=== PATIENT | female | born 1950 | race Caucasian/White ===

== ENCOUNTER 2016-06-21 06:06 | Observation (INO) ==
[2016-06-21] MEDS ORDERED: CeFAZolin Pre 2,000 MG/100 ML 2,000 MG/100 ML BAG IVPB ONE (06:40)
[2016-06-21] MEDS ORDERED: Lidocaine 1% 20 ML MDV ID ONE (06:42)
[2016-06-21] MEDS ORDERED: Ringers Solution, Lactated 1,000 ML IVC SCH ×2 (06:45→13:55)
[2016-06-21] MEDS ORDERED: Lidocaine -MPF 4% 5 ML AMPUL ONE (07:07)
[2016-06-21] MEDS ORDERED: *HR* Midazolam HCl 2 MG/2 ML VIAL ONE (07:09)
[2016-06-21] MEDS ORDERED: *HR* FentaNYL (PF) 100 MCG/2 ML VIAL ONE (07:10)
[2016-06-21] MEDS ORDERED: *HR* Propofol 200 MG/20 ML VIAL IVP ONE (07:10)
[2016-06-21] MEDS ORDERED: *HR* Succinylcholine 200 MG/10 ML VIAL IVP ONE (07:11)
[2016-06-21] MEDS ORDERED: Lidocaine -MPF 2% 2 ML VIAL ONE (07:11)
[2016-06-21] MEDS ORDERED: *HR* Rocuronium Bromide 50 MG/5 ML VIAL ONE ×2 (07:13→14:10)
[2016-06-21] MEDS ORDERED: *HR* Phenylephrine 10 MG/ML VIAL ONE (07:17)
[2016-06-21] MEDS ORDERED: *HR* Remifentanil 1 MG VIAL IVP ONE ×2 (07:20)
--- NOTE | 2016-06-21 07:30 | Anesthesia Evaluation PreOp ---
Date of Encounter: 06/21/16 Time of Encounter: 07:28 - Past History Planned Operation: PLIF L3-L5 Cardiac History: Hyperlipidemia Pulmonary History: Former smoker (89), Snore PITCH FILLER History: Denies Any Significant HX Other Medical History: Denies Any Significant HX Anesthesia History: No Prior Anesthetic Complications, Past Anesthesia ( hysterect, shoulder, l knee, appy, r ctr, vaginal) Alcohol Use: none Drug use: none Medications and Allergies Allergies acetaminophen [From Vicodin] Allergy (Unverified 06/16/16 11:16) Itching hydrocodone [From Vicodin] Allergy (Unverified 06/16/16 11:16) Itching nabumetone [From Relafen] Adverse Reaction (Unverified 06/16/16 11:16) Hives - Meds/Allergy Pre-op Review Medications Reviewed: Yes Allergies Reviewed: Yes Beta Blockers on Current Med List: No Anesthesia Results - Labs Laboratory Tests 06/16/16 06/16/16 11:25 11:25 Hgb 14.0 Hct 43.2 Plt Count 303 PT 11.0 APTT 31.6 06/23/15 na 139, k 4.1, creat 0.85 - Imaging EKG: pending Anesthesia Exam O2 Sat Height 1.65 m Height 1.65 m Height 1.65 m Weight 86.636 kg Weight 86.636 kg Weight 86.636 kg O2 Sat by Pulse Oximetry 95 O2 Sat by Pulse Oximetry 95 Vital Signs Temp Pulse Resp BP Pulse Ox 98.8 F 100 18 150/81 95 06/21/16 06:32 06/21/16 06:32 06/21/16 06:32 06/21/16 06:32 06/21/16 06:32 Height: 1.65 Weight: 86 NPO (# of Hours): >8 - HEENT Pupil (Motor): Pupils equal, EOMI Mallampati: III Teeth: Edentulous Oral Opening: Greater than 3 - PITCH FILLER LOC: Oriented PITCH FILLER Motor: Normal RUE, Normal LUE, Normal RLE, Normal LLE, Normal Face PITCH FILLER Sensory: Normal: RUE, LUE, RLE, LLE, Face - Cardiac Rhythm: Regular Murmur: None - Pulmonary Breath Sounds: bilateral Clear Respiratory Effort: Symmetrical Anesthesia Assess/Plan ASA Score: 2 Modified [place] Scale for Level of Consciousness: Cooperative, oriented, and tranquil Anesthetic Plan: General Monitoring Plan: Standard Monitors Recovery Plan: PACU
--- NOTE | 2016-06-21 07:34 | History & Physical Report ---
Date of Encounter: 06/21/16 Time of Encounter: 07:33 24 Hour HP Update - Instructions Instructions: If the History and Physical is less than 30 days old and was completed prior to A.M. admission and or procedure and has NOT been updated on calendar day of procedure please complete this update prior to performing procedure. - Update Patient reports changes in Medical Condition: No Changes in assessment/condition: No Changes in Medication: No Preop tests/diagnostics Reviewed: Yes Pre-Op MRSA Screen: Negative Surgery Remains Indicated: Yes Consent for Planned Operative Procedure(s) Verified: Yes - Pre-Operative Checklist Preoperative Checklist Indicated: No Prophylactic Antibiotic Ordered: Yes Home Medications Include Beta Dacia: No Beta Dacia Taken Today (Day of Surgery): No Beta Dacia Taken Yesterday (Day Prior to Surgery): No Is VTE Prophylaxis Indicated?: Yes
[2016-06-21] MEDS ORDERED: EPHEDrine 50 MG/ML VIAL ONE (10:28)
[2016-06-21] MEDS ORDERED: *HR* HYDROmorphone (PF) 1 MG/ML SYRINGE IVP PRN (10:59)
--- NOTE | 2016-06-21 11:04 | Anesthesia Progress Note ---
Date of Encounter: 06/21/16 Time of Encounter: 08:10 Anesthesia Note - Note Note: 06/21/16 11:01 patient in holding room, monitors on. 3 Vital Signs Time 0810 0825 0840 0855 0910 0925 BP 123/74 131/70 123/67 118/72 121/70 122/73 Pulse 91 100 97 97 95 95 Resp 14 16 16 16 16 16 O2 Sat 97 97 97 98 98 98 0935 or 7 ready, patient transported to or 7
[2016-06-21] MEDS ORDERED: Neostigmine Methylsulfate 3 MG/3 ML SYRINGE ONE (11:30)
[2016-06-21] MEDS ORDERED: *HR* HYDROmorphone 2 MG/ML SYRINGE ONE (12:45)
--- NOTE | 2016-06-21 13:00 | Orthopedic Operative Note ---
Date of procedure: 06/21/16 Pre-op diagnosis: vertebral fracture, lumbar stenosis, lumbar radiculopathy Post-op diagnosis: same Operation/Findings: Instrumented posterior spinal fusion L3-L5:The patient successfully underwent general endotracheal anesthesia. The patient was given antibiotics prior to the start of the procedure. Compression boots and stockings were used for deep vein thrombosis prophylaxis. A Pires catheter was placed. Leads for neuro monitoring were placed on the upper and lower extremities. This included the cranium. The neuro monitoring personnel confirmed there were satisfactory readings prior to the start of the procedure. The patient was turned prone on the El table. The back was prepped and draped in the usual sterile fashion. An incision was was marked and centered over the involved L3-L5 levels in the mid line. The incision was deepened through the lumbar fascia. Bovie cautery and Gao elevators were used to reflect the paraspinal musculature at the lateral extent of the transverse processes of the involved L3 , L4, and L5 levels. Rebeca clamps were placed over the L4 and L5 spinous processes. An intraoperative lateral fluorograph was obtained. A conversation was held between the surgeon and radiologist and both confirmed we had the correct operative levels. We then placed pedicle screws in standard fashion with the aid of fluoroscopy and anatomic landmarks. Briefly a starter awl was used. A gearshift was subsequently used to enter the pilot captain hole via a transpedicular route into the vertebral body. The pilot captain hole was tapped with an undersized instrument, and subsequently four 6.5 x 40 mm pedicle screws were placed bilaterally at the indicated L3 and L5 levels. The screws were tested with the aid of the neurologic monitoring staff via pedicle screw stimulation. All reading suggested there was no significant cortical wall breech. The screws were also evaluated fluoro- graphically and appeared to be in satisfactory position. We then turned our attention to the decompression portion of the procedure. We removed the supraspinous and interspinous ligaments and subsequently the insertion of the ligamentum flavum on the undersurface of the proximal L4 lamina was dislodged with a curette. We then removed the ligamentum flavum as well as undercut the facets at this L4-5 level to decompress the lateral recesses. Synovial cyst material and possible fracture fragmrnts were also removed. We also performed a L4 laminectomy. We proceeded proximally to the L3-4 level where again the lateral recess was decompressed by undercutting the facets at this level. We removed ligamentum flavum performed a partial L3 laminectomy as well. After the decompression the foramen and traversing roots at this level were found to be free and patent. We obtained some bone from the right posterior superior iliac spine through a separate incision and combined with this with the bone which we had saved from the laminectomy portion of the procedure. We then copiously irrigated the wound. We then decorticated the transverse processes of L3, L4 , and L5 as well as the L3-4 and L4-5 facet joints of the involved levels to aid in the posterolateral fusion. We placed autograft bone in the lateral gutters over these regions. We then placed rods within the screw heads of the involved L3- L5 levels. We then closed the wound in layers with 1 Vicryl for the fascia, 2 -0 Vicryl. Subcutaneous tissue, and Dermabond was used for skin closure. Sterile dressings were placed over the wound. The patient was turned supine on a hospital bed and extubated. All sponge instruments and needle counts were correct at the end of the procedure. The patient tolerated the procedure well Anesthesia: GETA Surgeon: Han Renee Jr Estimated blood loss (cc): 200 Condition: stable Disposition: PACU
--- NOTE | 2016-06-21 13:44 | Anesthesia Evaluation Post Op ---
Date of Encounter: 06/21/16 Time of Encounter: 13:43 - Vital Signs Vital Signs: Vital Signs/O2 Sat/Glucose, Most Current Temp Pulse Resp BP Pulse Ox 06/21/16 13:36 97.8 F 73 16 154/78 99 06/21/16 13:26 74 18 158/74 100 06/21/16 13:16 80 14 152/92 99 06/21/16 13:06 98.7 F 86 16 156/83 100 - Lungs Lungs: Clear Ascult./Percussion - Airway Airway: Non-obstructed - Cardiovascular Regular Rate - Mental Status Mental Status: Alert & Oriented, Answers Appropriately - Pain Pain Scale: 2 - Nausea Vomiting Nausea Vomiting: Not Present - Hydration Hydration: Ice chips - Discharge PostOp Status: Transfer Patient to floor
[2016-06-21] MEDS ORDERED: *HR* Morphine 2 MG/ML SYRINGE IVP PRN (13:55)
[2016-06-21] MEDS ORDERED: Sennosides 8.6 MG TABLET PO PRN (13:55)
[2016-06-21] MEDS ORDERED: Naloxone 0.4 MG/ML INJ IVP PRN (13:55)
[2016-06-21] MEDS ORDERED: Ibuprofen 400 MG TABLET PO PRN (13:55)
[2016-06-21] MEDS ORDERED: Ondansetron 4 MG/2 ML VIAL IVP PRN (13:55)
[2016-06-21] MEDS: *HR* OxyCODONE Immed Rel 5 MG TABLET PO PRN ×2 (14:27→21:10)
[2016-06-21] MEDS ORDERED: Dexamethasone 4 MG/ML VIAL ONE (15:23)
[2016-06-21] MEDS ORDERED: Ondansetron 4 MG/2 ML VIAL ONE (15:23)
[2016-06-21] MEDS: ceFAZolin 2,000 MG in D5% in Water 100 ML IVPB SCH (15:44)
--- NOTE | 2016-06-21 17:46 | Electrocardiograph Report ---
[facility] Test Date: 2016-06-21 Pat Name: Kimberley Alcantar Department: 106 Room: [facility] Gender: F Engineer Of System Development: Luci : 1950 Requested By: Malachi Vergara Order Number: [id number] Reading MD: Jason Turcios DO Measurements Intervals [place] Rate: 97 P: 4 DC: 159 QRS: 6 QRSD: 85 T: 22 QT: 337 QTc: 391 Interpretive Statements Sinus rhythm Electronically Signed On 06-21-16 17:45:06 EST by Jason Turcios DO
[2016-06-21] MEDS: *HR* Morphine 2 MG/ML SYRINGE IVP PRN (19:01)
[2016-06-22] MEDS: ceFAZolin 2,000 MG in D5% in Water 100 ML IVPB SCH (00:10)
[2016-06-22] MEDS: *HR* Morphine 2 MG/ML SYRINGE IVP PRN ×4 (00:10→20:00)
[2016-06-22] MEDS: *HR* OxyCODONE Immed Rel 5 MG TABLET PO PRN ×4 (03:14→16:33)
[2016-06-22 05:59] LABS: Basophils % 0.2 %; Hematocrit 35.5 % (35.3-44.9); Immature Granulocytes % 0.4 % (0-4); Lymphocytes # 2.2 K/mcL (0.6-4.6); Lymphocytes % 12.3 %; Mean Corpuscular HGB Conc 33.8 g/dL (31.6-35.5); Mean Corpuscular Hemoglobin 29.9 pg (28.0-33.3); Mean Corpuscular Volume 88.5 fL (83.0-100.0); Mean Platelet Volume 10.2 fL (9.4-12.4); Monocytes # 2.3 K/mcL (0.0-1.3); Monocytes % 12.6 %; Platelet Count 279 K/mcL (140-400); Red Blood Count 4.01 M/mcL (3.82-4.97); Red Cell Distribution Width 13.6 % (11.5-14.5); Segmented Neutrophils % 74.5 %
[2016-06-22 06:00] LABS: Neutrophils # 13.6 K/mcL (1.6-8.9)
[2016-06-22 06:15] LABS: BUN/Creatinine Ratio 17 (6-26); Blood Urea Nitrogen 13 mg/dL (7-20); Carbon Dioxide 23 mEq/L (19-29); Chloride 104 mEq/L (98-109); Glucose 122 mg/dL (70-99); Osmolality,Calculated 285 (280-300); Potassium 4.2 mEq/L (3.5-4.5); Sodium 137 mEq/L (136-145); eGFR For African Americans > 60 (> 60); eGFR For Non-African Americans > 60 (> 60)
[2016-06-22] MEDS: Multivit/Ca/Min/Fe/FA 1 TAB TABLET PO SCH (08:07)
[2016-06-22] MEDS: Cholecalciferol (D-3) 1,000 UNIT TABLET PO SCH (08:07)
[2016-06-22] MEDS: Loratadine 10 MG TABLET PO SCH (08:07)
[2016-06-22] MEDS: (Potassium Gluconate [Potassium Gluconate] 99 MG) PO SCH (08:08)
--- NOTE | 2016-06-22 09:11 | Spine Progress Note ---
Date of Encounter: 06/22/16 Time of Encounter: 09:10 Subjective Principal diagnosis: lumbar stenosis, vertebral fracture, lumbar radiculopathy Interval history: The patient is without complaints. Afebrile vital signs are stable. Dressing is clean dry and intact. Neurovascularly intact with regard to bilateral lower extremities. Fires all upper and lower extremity motor groups. Assessment : stable. Plan mobilize ,continue analgesics, discharge planning. Objective Vital signs: Vital Signs Temp Pulse Resp BP Pulse Ox 06/22/16 06:26 98.8 F 88 18 102/57 94 L 06/22/16 05:38 99 F 108 15 101/54 96 06/22/16 04:12 99.8 F H 107 19 94/57 95 06/22/16 00:09 98.9 F 104 15 111/69 95 06/21/16 20:13 98.2 F 95 16 124/76 98 06/21/16 17:07 99.2 F 89 16 122/73 98 06/21/16 16:27 99.3 F 97 15 117/68 97 06/21/16 15:22 97.6 F 81 16 119/66 100 06/21/16 14:30 98.1 F 73 16 142/72 98 06/21/16 13:57 98.0 F 70 14 138/73 99 06/21/16 13:46 97.8 F 71 16 151/79 100 06/21/16 13:36 97.8 F 73 16 154/78 99 06/21/16 13:26 74 18 158/74 100 06/21/16 13:16 80 14 152/92 99 06/21/16 13:06 98.7 F 86 16 156/83 100 Intake and Output 06/21/16 06/22/16 06/22/16 23:59 07:59 15:59 Intake Total 100 / 100 100 / 100 120 / 120 Output Total 2350 / 2350 Balance 100 / 100 -2250 / -2250 120 / 120 Intake: IV Fluids 100 / 100 100 / 100 Ancef 2,000 MG In 100 / 100 100 / 100 Dextrose 5% 100 ML @ 200 mls/hr IVPB Q8HR RHONDA Rx#: [id number] Oral 120 / 120 Output: Catheter 2350 / 2350 Other: Meal Breakfast Percent of Meal Consumed 50% - Labs CBC & BMP: 06/22/16 05:35 01/24/17 05:35 Labs: Abnormal lab results WBC 18.2 K/mcL (4.3-11.1) H D 06/22/16 05:35 Neutrophils # 13.6 K/mcL (1.6-8.9) H 06/22/16 05:35 Monocytes # 2.3 K/mcL (0.0-1.3) H 06/22/16 05:35 Glucose 122 mg/dL (70-99) H 06/22/16 05:35 Consult Discharge Plan - Plan Referrals: Brea Rodriguez, FIRMWARE SOFTWARE VERIFICATION ENGINEER [Primary Care Provider] -
[2016-06-23] MEDS: *HR* OxyCODONE Immed Rel 5 MG TABLET PO PRN ×3 (00:14→12:32)
[2016-06-23] MEDS: (Potassium Gluconate [Potassium Gluconate] 99 MG) PO SCH (08:36)
[2016-06-23] MEDS: Cholecalciferol (D-3) 1,000 UNIT TABLET PO SCH (08:37)
[2016-06-23] MEDS: Multivit/Ca/Min/Fe/FA 1 TAB TABLET PO SCH (08:37)
[2016-06-23] MEDS: Loratadine 10 MG TABLET PO SCH (08:37)
[2016-06-23] MEDS ORDERED: MOM Conc 10 ML UD.LIQ PO PRN (13:00)
--- NOTE | 2016-06-23 13:05 | Spine Progress Note ---
Date of Encounter: 06/23/16 Time of Encounter: 13:05 Subjective Principal diagnosis: lumbar stenosis, vertebral fracture, lumbar radiculopathy Interval history: The patient is without complaints. Afebrile vital signs are stable. Incision is clean dry and intact. Neurovascularly intact with regard to bilateral lower extremities. Fires all upper and lower extremity motor groups. Assessment : stable. Plan mobilize ,continue analgesics, discharge planning. Objective Vital signs: Vital Signs Temp Pulse Resp BP Pulse Ox 06/23/16 11:02 98.9 F 121 20 112/70 96 06/23/16 06:19 98.4 F 109 18 111/66 93 L 06/23/16 02:06 98.6 F 114 16 94/54 92 L 06/22/16 21:06 98.3 F 119 17 123/71 96 06/22/16 14:32 98.4 F 97 18 118/73 96 Intake and Output 06/22/16 06/23/16 06/23/16 23:59 07:59 15:59 Intake Total 0 / 0 200 / 200 Balance 0 / 0 200 / 200 Intake: Oral 0 / 0 200 / 200 Other: Meal Lunch Percent of Meal Consumed 95% # Voids 1 1 - Labs CBC & BMP: 06/22/16 05:35 06/22/16 05:35 Labs: Abnormal lab results WBC 18.2 K/mcL (4.3-11.1) H D 06/22/16 05:35 Neutrophils # 13.6 K/mcL (1.6-8.9) H 06/22/16 05:35 Monocytes # 2.3 K/mcL (0.0-1.3) H 06/22/16 05:35 Glucose 122 mg/dL (70-99) H 06/22/16 05:35 Consult Discharge Plan - Plan Referrals: Marian Savage, PAC [Physician Person Investigator] - 07/06/16 8:00 Brea Gaona, [employer] EXCH[employer] ARCHITECT [Primary Care Provider] -
[2016-06-24] MEDS: *HR* OxyCODONE Immed Rel 5 MG TABLET PO PRN ×2 (07:02→13:30)
[2016-06-24] MEDS: Multivit/Ca/Min/Fe/FA 1 TAB TABLET PO SCH (08:29)
[2016-06-24] MEDS: Loratadine 10 MG TABLET PO SCH (08:29)
[2016-06-24] MEDS: Cholecalciferol (D-3) 1,000 UNIT TABLET PO SCH (08:30)
[2016-06-24] MEDS: (Potassium Gluconate [Potassium Gluconate] 99 MG) PO SCH (08:31)
[2016-06-24 10:59] VITALS: BP 116/62
--- NOTE | 2016-06-24 13:13 | Discharge Summary ---
Date of Encounter: 06/24/16 Time of Encounter: 13:10 - Discharge Diagnosis (1) Lumbar stenosis Priority: Primary Status: Chronic (2) Lumbar radiculopathy Priority: Secondary Status: Chronic (3) Vertebral fracture Priority: Secondary Status: Chronic Qualifiers: Encounter type: subsequent encounter Fracture of vertebra location: lumbar Lumbar vertebra fracture level: L4 Fracture type: closed Fracture morphology: wedge compression Fracture healing: with routine healing Qualified Code(s): S32.040D - Wedge compression fracture of fourth lumbar vertebra, subsequent encounter for fracture with routine healing - Discharge Medications Prescriptions: OxyCODONE Immed Rel [Roxicodone 5 MG] 5 mg PO Q4HR PRN #60 tablet PRN Reason: Severe Pain Home Medications: Cholecalciferol (D-3) [Vitamin D] 1,000 unit PO DAILY 06/21/16 [History] Gabapentin [Neurontin] 300 mg PO TID 06/21/16 [History] Ibuprofen [Motrin] 400 mg PO Q8HR PRN 06/21/16 [History] Loratadine [Claritin] 10 mg PO DAILY 06/21/16 [History] Meloxicam [Mobic] 15 mg PO DAILY 06/21/16 [History] Multivitamin [One Daily Essential] 1 each PO DAILY 06/21/16 [History] Potassium Gluconate 99 mg PO DAILY 06/21/16 [History] Simvastatin [Zocor] 10 mg PO HS 06/21/16 [History] Tramadol HCl [Ultram] 50 mg PO QID PRN 06/21/16 [History] OxyCODONE Immed Rel [Roxicodone 5 MG] 5 mg PO Q4HR PRN #60 tablet 06/24/16 [Rx] Allergies/Adverse Reactions: Allergies acetaminophen [From Vicodin] Allergy (Verified 06/21/16 07:47) Itching hydrocodone [From Vicodin] Allergy (Verified 06/21/16 07:47) Itching nabumetone [From Relafen] Adverse Reaction (Verified 06/21/16 07:47) Hives jacqueline hips Adverse Reaction (Verified 06/21/16 07:47) Joint Pain - Impressions ITS Impressions Lumbar Spine X-Ray 06/21/16 00:00 IMPRESSION: Baseline study, status post posterior fusion from L3 through L5. No acute postoperative complication. D/ / 06/21/2016 13:21:01 Austin Eaton MD / earnold Interpreting Provider: Austin Eaton MD Lumbar Spine X-Ray 06/24/16 08:30 IMPRESSION: No hardware complication or change in the L4 vertebral body fracture identified. Stable postoperative changes seen related to posterior spinal fusion at L3 through L5. D/ / Austin Lopez MD / Austin Lopez MD Interpreting Provider: Austin Lopez MD Date of admission: 06/21/16 13:53 Primary care physician: GEORGETTE Grant Consults: 06/21/16 13:55 Consult to Occupational Therapy [CONS] Routine Comment: Evaluate, develop and implement POC Consult to Physical Therapy [CONS] Routine Comment: Evaluate, develop and implement POC Consult to Spine Navigator [CONS] [CONS] Routine - Patient Status Disposition: Home, Self-Care Condition: Good Functional capacity at discharge: independent ambulation Overall status at discharge: patient is progressing back to baseline - Discharge Instructions Follow Up With: Marian Savage, PAC [Physician Armature Inspector] - 07/06/16 8:00 am Brea Rodriguez, [employer] [Primary Care Provider] - Additional Instructions: Discharge Instructions: Lumbar Please call [facility] ([phone]), your Primary Care Physician, or report to the ER if you have any of the following symptoms: Fever greater that 101.5, increased pain/redness/drainage/odor for your incision site or any other concerning symptoms. ACTIVITY * May Shower * No Tub Baths * No lifting greater than 10 pounds * No Smoking * No Swimming * No off Ground Activities (Running, Climbing, Ladders, Horseback Riding) * No Driving * Wear Back Brace when up walking if lumbar fusion done MEDICATIONS: Upon discharge resume your home medications. Take all the medications as prescribed. Take a stool softener if taking narcotic pain medications. Stool softeners are only effective if you drink enough fluids. Drink 6-8 glass of water or fluids a day, unless this is not allowed for another health problem. Despite using stool softeners, if you haven't had a bowel movement in 3 days, please switch to a gentle laxative. Gentle laxatives are sold over the counter. You should have a bowel movement within 24 hours, if not call the office. You will be discharged from the hospital with a prescription for pain medication. You are encouraged to decrease the use of narcotic pain medication as tolerated. Should you require a refill, please call the office. It is best to call 48-72 hours in advance of needing a prescription refill so you don't run out of medication. WOUND CARE: Remove Dressing Tomorrow. Leave incision open to air. Pat dry when you get out of the shower. FOLLOW-UP: Please follow up with your surgeon in the orthopedic clinic in 2 weeks from the day of surgery. References: [place] (www.apta.org) - Diet and Activity Activity: as per physical therapy Diet: advance to your usual diet - Hospital Course Hospital course: Ms. Alcantar is a 66 year old femaleThe patient had an uneventful postoperative course. Progressed from intravenous analgesic needs to oral analgesic needs only. Remained neurovascularly intact and mobilized satisfactorily. All intraoperative and/or postoperative radiographic studies were satisfactory. Patient is discharged with plan for rehabilitation and follow-up in 2 weeks post discharge on analgesic medication and patient's home medications. - Time Spent with Patient Total time spent providing and/or coordinating discharge services: - VTE Documentation of Mechanical Device: Intermittent pneumatic compression device
== END 2016-06-24 14:15 | disposition home or self-care (01) | DRG 460 ==
LOC: SAMDAY 06:06 → 3NENU 13:53 → INTOOBSV 13:53
PROVIDERS: ADMIT Orthopaedic Surgery Orthopaedic Surgery of the Spine; ATTEND Orthopaedic Surgery Orthopaedic Surgery of the Spine